=== PATIENT | male | born 1965 | race Hispanic/Latino ===

== ENCOUNTER → 2019-12-27 | Outpatient (CLI) | payer OTHER | END | disposition home or self-care (01) | LOC: RAH 08:10 | PROVIDERS: ATTEND Internal Medicine Gastroenterology | DX: B18.2 Chronic viral hepatitis C (principal); R16.0 Hepatomegaly, not elsewhere classified | CPT/HCPCS: 76700; 93975 ==

== ENCOUNTER 2025-05-04 09:55 | Emergency (ER) | payer BC, OTHER ==
[~2025-05-04] VITALS: Ht 182.9 cm; Wt 81.6 kg
--- NOTE | 2025-05-04 10:16 | ERN ---
General Chief Complaint: Cellulitis Stated Complaint: RT FACIAL CELLULITIS Time Seen by MD: 09:57 Source: patient History of Present Illness Initial Comments Patient is a 59-year-old male coming in complaining of right facial swelling. Patient states that this has been ongoing for a couple of days. He also states that he bit himself and insight in his right cheek and since then has been having in his in his swelling. Along with the swelling patient states that he has been having fever and chills and generalized body weakness. Allergies: Coded Allergies: No Known Allergies (Unverified Allergy, Unknown, 05/04/25) Past Medical History Past Medical History: No Pertinent History Past Surgical History: Other Surgical History Other: SHOULDER ROS Dictation CONSTITUTIONAL: No chills, no fever, no weakness, no diaphoresis, no malaise. HEAD/FACE: No signs of trauma. EENT: No eye pain, no blurred vision, no tearing, no double vision, no ear pain, no ear discharge, no nose pain, no nasal congestion, no throat pain, no throat swelling, no mouth pain. RESPIRATORY: No cough, no orthopnea, no SOB, no stridor, no wheezing. CARDIOVASCULAR: No chest pain, no edema, no palpitations, no syncope. GASTROINTESTINAL/ABDOMINAL: No abdominal pain, no constipation, no diarrhea, no nausea, no vomiting. GENITOURINARY: No abnormal discharge, no dysuria, no frequent urination, no hematuria. No complaints of pain in the genitals. MUSCULOSKELETAL: No back pain, no gout, no joint pain, no joint swelling, no muscle pain, no muscle stiffness, no neck pain. INTEGUMENTARY: No change in color, no change in hair/nails, no dryness, no lesion, lumps, no rash. NEUROLOGICAL/PSYCH: No anxiety, not depressed, no emotional problem, no headache, no numbness, no pre-existing deficit, no history of seizures, no tremors, no weakness. HEMATOLOGIC/LYMPHATIC: Not anemic, no history of blood clots, no apparent bl eeding, no bruising, glands not swollen. All Systems Negative, Except as Noted. Physical Exam Physical Exam Dictation VITAL SIGNS: Reviewed. GENERAL APPEARANCE: Alert, oriented x3, no acute distress, obese. HEAD AND FACE: Non-traumatic. Right facial swelling EYES: PERRL, pink conjunctivas, eyelid no trauma, anterior chamber clear. EARS: Pinnas intact and no signs of trauma or erythema. Ear canals clear and no discharge. TMs no erythema. NOSE: No discharge, no bleeding. OROPHARYNX: Mouth normal, teeth no caries, tongue pink. Pharynx clear, no erythema. Tonsils no exudates, no abscesses noted. Mucous membrane moist. NECK: Supple, non-tender, no thyromegaly, no masses, no JVD, no bruits. BREAST: Deferred. CHEST: No tenderness, no crepitus, no paradoxical movement, no retractions. LUNGS: Clear, well-ventilated, symmetric, no rales, no wheezing, no rhonchi, no stridor, good breath sounds bilaterally. HEART: Regular rate, regular rhythm, no murmur, no gallops. VASCULAR: No peripheral edema. ABDOMEN: Soft, positive bowel sounds, nondistended, no guarding, nontender, no rebound, no masses no hepatomegaly, no splenomegaly, no Morales's sign, no hernias. RECTAL: Deferred. GENITAL: Deferred. NEUROLOGICAL: Normal speech, gross motor function intact, gross sensory function intact. MUSCULOSKELETAL: Neck nontender, full range of motion, back nontender, full range of motion. EXTREMITIES: Nontender, full range of motion. SKIN: Color pink, dry, no turgor, no rash, no lacerations, no abrasions, no contusions. LYMPHATICS: Deferred. Results Laboratory and Microbiology Lab and Micro Result Laboratory Tests Test 05/04/25 10:11 White Blood Count 13.6 K/uL (4.8-10.8) H Red Blood Count 4.17 MIL/uL (4.50-6.20) L Hemoglobin 13.0 g/dL (14.0-18.0) L Hematocrit 38.1 % (42-54) L Mean Corpuscular Volume 91.4 fL (79-99) Mean Corpuscular Hemoglobin 31.2 pg (27.0-33.0) Mean Corpuscular Hemoglobin Concent 34.1 g/dL (32.0-36.0) Red Cell Distribution Width 12.7 % (11.0-15.5) Platelet Count 182 K/uL (130-400) Mean Platelet Volume 8.5 fL (7.5-10.5) Immature Granulocyte % (Auto) 0.5 % (0-1) Neutrophils (%) (Auto) 83.5 % (40.0-77.0) H Lymphocytes (%) (Auto) 7.1 % (21.0-51.0) L Monocytes (%) (Auto) 8.6 % (3.0-13.0) Eosinophils (%) (Auto) 0.1 % (0.0-8.0) Basophils (%) (Auto) 0.2 % (0.0-5.0) Neutrophils # (Auto) 11.4 K/uL (1.8-7.7) H Lymphocytes # (Auto) 1.0 K/uL (1.0-4.8) Monocytes # (Auto) 1.2 K/uL (0.1-1.0) H Eosinophils # (Auto) 0.01 K/uL (0.00-0.70) Basophils # (Auto) 0.03 K/uL (0.00-0.20) Absolute Immature Granulocyte (auto 0.07 K/uL (0-1) Nucleated Red Blood Cells 0.0 % (0.0-0.19) White Cell Morphology Comment See comments Sodium Level 136 mmol/L (136-145) Potassium Level 4.1 mmol/L (3.5-5.1) Chloride Level 98 mmol/L (101-111) L Carbon Dioxide Level 31 mmol/L (21-32) Blood Urea Nitrogen 13 mg/dL (7-18) Creatinine 0.9 mg/dL (0.5-1.3) Glomerular Filtration Rate Calc 98 mL/min (>90) Random Glucose 140 mg/dL (70-105) H Lactic Acid Level 1.1 mmol/L (0.8-2.5) Total Calcium 8.7 mg/dL (8.5-10.1) Troponin I High Sensitivity 6 ng/L (4-75) Labs Reviewed?: Yes EKG/XRAY/US/CT/MRI CT Scan Comment [place] [address] [place] [id number] IMAGING REPORT Signed PATIENT: DILCIA SORIANO MR#: [id number] : 1965 SEX: M AGE: 59 LOCATION: [facility] ORDER 1220 STATUS: REG ER REPORT#: [id number] SERVICE 1219 REASON: RIGHT FACIAL SWELLING ORDERING PHYSICIAN: ARTIS GORDON MD PROCEDURE: MAXFACI W - CT MAXILLOFACIAL W/CONTRAST CT MAXILLOFACIAL W/CONTRAST CLINICAL HISTORY: RIGHT FACIAL SWELLING COMPARISON: None TECHNIQUE: Thin axial images were obtained through the facial bones/orbits with the use of intravenous contrast. Patient was given 75 cc of Omnipaque 350. Coronal and sagittal reformatted images were also submitted for interpretation. CONTRAST: mL of Isovue FINDINGS: NASAL REGION: The nasal bones, frontal processes of the maxilla, and lamina papyracea are intact. The ethmoid air cells are clear. The nasal septum is not deviated. and the nasal spine is intact. ORBITS: The orbital dave, floor, roof and rims are intact. The globes are symmetric and intact. There is no dislocation of the lens. Extraocular muscles are symmetric. Retro-ocular soft tissues are clear. ZYGOMA: The zygomatic arch, inferior and lateral orbital rim, and lateral and anterior dave of the maxilla are intact. MAXILLARY REGION: The alveolar, pterygoid and palatine processes are intact. Maxillary sinuses are clear. MANDIBLE: The symphysis, body and ramus are intact. Coronoid process and alveolar ridges are unremarkable in appearance. No dislocation or fracture of the condyles. SOFT TISSUES: There is right-sided facial soft tissue swelling with enlargement of the muscles the submandibular and parotid glands with no atelectasis or fluid collection seen. This finding is suggesting of a cellulitis.. The included brain is unremarkable. Visualized portions of the cervical spine look unremarkable. IMPRESSION: Right facial swelling with no associated fluid collection or abscess with inflammatory processes of the right neck structures. This finding is suggesting of a cellulitis. DICTATED BY: MINESH WICK MD DATE: 05/04/25 1401 ELECTRONICALLY SIGNED BY: MINESH WICK MD DATE: 05/04/25 140 MDM MDM: Differential diagnosis: RIGHT FACIAL CELLULITIS, CELLULITIS, PERIODONTAL DISEASE, Rationale: Tests considered and ordered secondary to shared decision making include: Previous outside records reviewed: Old ER visits. Risk of complication and/or morbidity or mortality of patient management: None Medications-Per medication reconciliation Need for hospitalization: Patient does not meet criteria for hospitalization. PATIENT IS A 59-YEAR-OLD MALE COMING IN COMPLAINING OF RIGHT FACIAL PAIN. ON PHYSICAL EXAM PERIODONTAL DISEASE WITH FRACTURED MOLARS ARE NOTED. RIGHT LOWER MOLAR SWELLING WAS NOTED CT DID NOT DISCLOSE ANY FLUID COLLECTION OTHER ACUTE FINDINGS. CELLULITIS IS PRESENT. PATIENT WILL BE DISCHARGED WITH ORAL ANTIBIOTICS. I DID ADVISED HIM APPROPRIATE FOLLOW UP WITH DENTIST IN HER PCP FOR ONGOING MANAGEMENT. ED Course Orders Procedure Category Date Status Time Cbc With Differential LAB 05/04/25 Complete 10:02 Blood Cult CHRISTIANO 05/04/25 In Process 10:02 0.9%Nacl 1000ml (Ns PHA 05/04/25 Complete 1000ml) 10:30 Troponin I High LAB 05/04/25 Complete Sensitivity 10:02 Lactic Acid LAB 05/04/25 Complete 10:02 Basic Metabolic Panel LAB 05/04/25 Complete 10:02 Clindamycin Ivpb PHA 05/04/25 Complete 600mg/50ml (Cleocin 10:02 Methylprednisolone PHA 05/04/25 Complete Succ 125mg (Solu-Medr 10:30 Acetaminophen 500mg PHA 05/04/25 Complete Tab (Tylenol 500mg T 10:[address] 05/04/25 Resulted W/Contrast 12:19 Iohexol (Omnipaque) PHA 05/04/25 Complete 12:55 Current Medications Medications (Trade) Dose Ordered Sig/Janneth Route PRN Reason Start Time Stop Time Status Last Admin Dose Admin Acetaminophen (TYLenol 500MG TAB) 1,000 mg ONCE ONCE PO 05/04/25 10:30 05/04/25 10:31 DC 05/04/25 10:26 Clindamycin HCl/ Dextrose 50 ml @ 100 mls/hr Q8H STAT IV 05/04/25 10:02 05/04/25 10:31 DC 05/04/25 10:24 Iohexol (Omnipaque) 75 ml STK-MED ONCE IV 05/04/25 12:55 05/04/25 12:55 DC Methylprednisolone Sodium Succinate (Solu-medROL 125MG) 125 mg ONCE ONCE IVP 05/04/25 10:30 05/04/25 10:31 DC 05/04/25 10:25 Sodium Chloride 2,448 ml @ 816 mls/hr ONCE ONCE IV 05/04/25 10:30 05/04/25 13:29 DC 05/04/25 10:25 Vital Signs Date Time Temp Pulse Resp B/P (MAP) Pulse Ox O2 Delivery O2 Flow Rate FiO2 05/04/25 12:00 98.6 98 18 19/75 95 Room Air* 0 21 05/04/25 10:26 102.7 05/04/25 10:11 102.7 93 18 128/75 95 Room Air* 0 21 05/04/25 09:56 102.9 107 20 121/80 98 Room Air 0 DX & DISP Disposition: Discharge Departure Impression: Primary Impression: Facial cellulitis Additional Impression: Periodontal disease Condition: Stable Scripts Naproxen (Naproxen) 500 Mg Tablet 1 TAB PO BID for pain for 7 Days, #14 TAB 0 Refills Prov: ARTIS GORDON MD 05/04/25 Clindamycin HCl (Clindamycin HCl) 300 Mg Capsule 1 CAP PO TID for 10 Days, #30 CAP 0 Refills Prov: ARTIS GORDON MD 05/04/25 Additional Instructions: FOLLOW-UP WITH PRIMARY CARE PROVIDER IN 1 TO 2 DAYS. TAKE MEDICATIONS DIRECTED HERE IN THE EMERGENCY ROOM. OKAY TO CONTINUE HOME MEDICATIONS UNLESS OTHERWISE DISCUSSED DURING YOUR VISIT IN THE EMERGENCY ROOM TODAY. RETURN TO YOUR NEAREST EMERGENCY ROOM IF SYMPTOMS WORSEN OR IF THERE IS NO IMPROVEMENT. CALL 911 IF YOU NEED IMMEDIATE ASSISTANCE. TAKE TYLENOL [id number] NEEDED AND IF NO CONTRAINDICATIONS ARE PRESENT. INCREASE ORAL HYDRATION. A WOUND CULTURE OR URINE CULTURE WAS ORDERED HERE IN THE EMERGENCY ROOM DEPARTMENT PLEASE FOLLOW-UP WITH PRIMARY CARE PROVIDER AND ADVISE THEM TO GET REPORTS FROM OUR FACILITY. IF YOU HAD ANY FAN WRAP/SPLINTS THAT WERE APPLIED HERE, PLEASE DO NOT REMOVE THEM UNTIL YOU SEE YOUR PRIMARY CARE OR SPECIALTY. REFERRALS: Referrals: SELF,REFERRAL (PCP) URBANO SEGAL MD Time of Disposition: 14:15 ARTIS GORDON MD May 04, 2025 10:16
[2025-05-04 10:17] LABS: IMMATURE GRANULOCYTE ABSOLUTE 0.07 K/uL (0-1); NUCLEATED RED BLOOD CELLS 0.0 % (0.0-0.19); PLATELET COUNT (AUTO) 182 K/uL (130-400); RED BLOOD CELL COUNT(AUTO) 4.17 MIL/uL (4.50-6.20); RED CELL DISTRIBUTION WIDTH 12.7 % (11.0-15.5); WHITE BLOOD COUNT (AUTO) 13.6 K/uL (4.8-10.8)
[2025-05-04 10:24] LABS: CREATININE 0.9 mg/dL (0.5-1.3); GLOMERULAR FILTR. RATE CALC 98.0 mL/min (>90); GLUCOSE,RANDOM 140.0 mg/dL (70-105); SODIUM SERUM 136.0 mmol/L (136-145); UREA NITROGEN, BLOOD 13.0 mg/dL (7-18)
[2025-05-04] MEDS: CLINDAMYCIN IVPB 600MG/50ML 50 ML IV STA (10:24)
[2025-05-04] MEDS: 0.9%NACL 1000ML 2,448 ML IV ONE (10:25)
[2025-05-04 10:26] VITALS: TEMP 102.7
[2025-05-04] MEDS ORDERED: IOHEXOL-350 75 ML VIAL IV ONE (12:55)
--- NOTE | 2025-05-04 14:06 | HMCIMG ---
CT MAXILLOFACIAL W/CONTRAST CLINICAL HISTORY: RIGHT FACIAL SWELLING COMPARISON: None TECHNIQUE: Thin axial images were obtained through the facial bones/orbits with the use of intravenous contrast. Patient was given 75 cc of Omnipaque 350. Coronal and sagittal reformatted images were also submitted for interpretation. CONTRAST: mL of Isovue FINDINGS: NASAL REGION: The nasal bones, frontal processes of the maxilla, and lamina papyracea are intact. The ethmoid air cells are clear. The nasal septum is not deviated. and the nasal spine is intact. ORBITS: The orbital dave, floor, roof and rims are intact. The globes are symmetric and intact. There is no dislocation of the lens. Extraocular muscles are symmetric. Retro-ocular soft tissues are clear. ZYGOMA: The zygomatic arch, inferior and lateral orbital rim, and lateral and anterior dave of the maxilla are intact. MAXILLARY REGION: The alveolar, pterygoid and palatine processes are intact. Maxillary sinuses are clear. MANDIBLE: The symphysis, body and ramus are intact. Coronoid process and alveolar ridges are unremarkable in appearance. No dislocation or fracture of the condyles. SOFT TISSUES: There is right-sided facial soft tissue swelling with enlargement of the muscles the submandibular and parotid glands with no atelectasis or fluid collection seen. This finding is suggesting of a cellulitis.. The included brain is unremarkable. Visualized portions of the cervical spine look unremarkable. IMPRESSION: Right facial swelling with no associated fluid collection or abscess with inflammatory processes of the right neck structures. This finding is suggesting of a cellulitis.
[2025-05-04] MEDS ORDERED: CLIN-141 PO (14:16)
[2025-05-04] MEDS ORDERED: NAPR-1194 PO (14:16)
[2025-05-04 15:00] VITALS: BP 121/70; PULSE 85; RESP 16; TEMP 98.2; O2SAT 98
== END 2025-05-04 15:12 | disposition home or self-care (01) ==
LOC: EDH 09:55
DX: L03.211 Cellulitis of face (principal); K05.6 Periodontal disease, unspecified
CPT/HCPCS: 99284; 96365; 70487; 96375; 84484; 80048; 85025; 87040 ×2; 83605; 36415; J2919; J7030; J3490; Q9967

== ENCOUNTER 2025-05-09 08:02 | Emergency (ER) | payer BC ==
[~2025-05-09] VITALS: Ht 180.3 cm; Wt 78.9 kg
[~2025-05-09 08:02] MED LIST: CLIN-141 PO; NAPR-1194 PO
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
[2025-05-09 08:39] LABS: IMMATURE GRANULOCYTE ABSOLUTE 0.05 K/uL (0-1); NUCLEATED RED BLOOD CELLS 0.0 % (0.0-0.19); PLATELET COUNT (AUTO) 251 K/uL (130-400); RED BLOOD CELL COUNT(AUTO) 4.01 MIL/uL (4.50-6.20); RED CELL DISTRIBUTION WIDTH 12.3 % (11.0-15.5); WHITE BLOOD COUNT (AUTO) 9.4 K/uL (4.8-10.8)
[2025-05-09 08:48] LABS: CREATININE 0.7 mg/dL (0.5-1.3); GLOMERULAR FILTR. RATE CALC 105.0 mL/min (>90); GLUCOSE,RANDOM 102.0 mg/dL (70-105); SODIUM SERUM 140.0 mmol/L (136-145); UREA NITROGEN, BLOOD 13.0 mg/dL (7-18)
[2025-05-09] MEDS: LIDOCAINE HCL 1% 20 ML VIAL INJ STA (09:28)
--- NOTE | 2025-05-09 09:55 | HMCIMG ---
EXAM: US examination, right cheek CLINICAL HISTORY: RT FACE SWELLING TECHNIQUE: Real-time ultrasound examination performed with image documentation. COMPARISON: None provided. FINDINGS: There is a complex fluid collection within the right cheek measuring approximately 4.2 x 3 x 3.8 cm. The collection demonstrates internal echoes and peripheral vascularity on color Doppler imaging, suggestive of an abscess. Surrounding soft tissue edema is noted. No obvious foreign body identified. Subcutaneous edema is present in the overlying region. No subcutaneous emphysema or gas locules identified IMPRESSION: Complex fluid collection within the right cheek measuring approximately 4.2 x 3 x 3.8 cm with internal echoes and peripheral vascularity, suggestive of abscess formation. /[place]
[2025-05-09] MEDS: CLINDAMYCIN IVPB 600MG/50ML 50 ML IV STA (10:46)
[2025-05-09] MEDS ORDERED: IOHEXOL-350 75 ML VIAL IV ONE (11:04)
--- NOTE | 2025-05-09 12:59 | HMCIMG ---
EXAM: CT Maxillofacial with Intravenous Contrast. CLINICAL HISTORY: RIGHT FACIAL SWELLING TECHNIQUE: Axial computed tomography images of the face with intravenous contrast. Sagittal and coronal reformatted images were generated. CONTRAST: None. COMPARISON: study dated FINDINGS: BONES: No acute fracture or aggressive appearing osseous lesion. The mandible is intact. SOFT TISSUES: Peripherally enhancing heterogeneous lesion measuring 5 x 3.7 x 6 cm in the right coremaker space anterior to the right masseter muscle. The right masseter appears bulky. Significant surrounding fat stranding in the right coremaker and buccinator space. The underlying bony cortex appears normal. The right submandibular gland appears bulky. Heterogeneously enhancing lymph nodes right level, Ib and II largest measuring 1.5 x 1 cm SINUSES: The sinuses are clear. ORBITS: The orbits are normal. No retrobulbar hematoma or mass. IMPRESSION: 1. Right coremaker space abscess measuring 5 x 3.7 x 6 cm with surrounding inflammatory changes and reactive lymphadenopathy. The inflammatory process and fluid collection has progressed from the prior examination. /[place]
--- NOTE | 2025-05-09 13:51 | NUR ---
INITIATED TRANSFER WITH [facility], DENIED DUE TO NO OMF SERVICE
--- NOTE | 2025-05-09 14:40 | NUR ---
INITIATED TRANSFER AT 1356. DECLINED DUE TO NO OMF SERVICE
--- NOTE | 2025-05-09 15:52 | NUR ---
INITIATED TRANSFER WITH [facility] @ 9334. DECLINED DUE TO NO OMF SERVICE
--- NOTE | 2025-05-09 17:29 | NUR ---
INITIATED WITH [facility]ACILITIES, DENIED DUE TO NO OMF SERVICE
--- NOTE | 2025-05-09 17:32 | NUR ---
INITIATED TRANSFER WITH [facility], DECLINED DUE TO CAPACITY
--- NOTE | 2025-05-09 18:09 | NUR ---
INITIATED TRANSFER WITH [facility], WAITED OVER 10 MIN, NO ANSWER, NOTIFIED DR GORDON. INSTRUCTED TO TRY ORTHODOX [place].
--- NOTE | 2025-05-09 18:24 | NUR ---
INITIATED TRANSFER WITH CHACORTA MENENDEZ
--- NOTE | 2025-05-09 18:40 | NUR ---
[employer] CALLED BACK, ALL CAPACITIES WITH THE EXCEPTION OF [facility] HAVE TO DECLINE DUE TO CAPACITY OR NO [facility] SERVICE. WILL WAIT ON JOSE FUNEZ TO RESPOND
[2025-05-09 19:48] VITALS: BP 152/65; PULSE 110; RESP 18; TEMP 98.9; O2SAT 100
[2025-05-09] MEDS: LIDOCAINE 2%-EPI 1:200,000 20 ML VIAL IJ ONE (20:10)
--- NOTE | 2025-05-09 20:45 | NUR ---
CONSENT FOR I&D SECURED BEDSIDE I&D DONE BY DR LE
== END 2025-05-09 21:11 | disposition home or self-care (01) ==
LOC: EDH 08:02
DX: L02.01 Cutaneous abscess of face (principal)
CPT/HCPCS: 99285; 96365; 70487; 96375; 80048; 85025; 87076; 87086; 87186; 36415; 76536; 87070; J1885; J2270; J3490 ×2; Q9967